=== PATIENT | female | born 1990 ===

== ENCOUNTER 2018-02-22 14:45 | Inpatient (IN) | payer OTHER ==
[~2018-02-22] VITALS: Ht 180.3 cm; Wt 143.8 kg
[2018-03-06] MEDS ORDERED: PRENATAL 19 TA1 EAC1 PO (08:47)
[2018-03-06] MEDS ORDERED: FOLIC ACID0.4 MG PO (08:48)
== END 2018-03-09 15:05 | disposition home or self-care, planned readmission (81) | DRG 775 ==
LOC: OB/GYN 03-06 05:59 → LDR 03-06 05:59 → OB/GYN 03-07 21:38 → LDR 03-12 14:45
PROC: 10E0XZZ Delivery of Products of Conception, External Approach (ICD-10-PCS; principal; 2018-03-07)
PROC: 0HQ9XZZ Repair Perineum Skin, External Approach (ICD-10-PCS; 2018-03-07)
PROC: 10907ZC Drainage of Amniotic Fluid, Therapeutic from Products of Conception, Via Natural or Artificial Opening (ICD-10-PCS; 2018-03-07)
PROC: 3E0P7VZ Introduction of Hormone into Female Reproductive, Via Natural or Artificial Opening (ICD-10-PCS; 2018-03-07)
PROC: 3E033VJ Introduction of Other Hormone into Peripheral Vein, Percutaneous Approach (ICD-10-PCS; 2018-03-07)
PROC: 4A033R1 Measurement of Arterial Saturation, Peripheral, Percutaneous Approach (ICD-10-PCS; 2018-03-07)
PROC: 4A1HXCZ Monitoring of Products of Conception, Cardiac Rate, External Approach (ICD-10-PCS; 2018-03-07)
DX: O70.0 First degree perineal laceration during delivery (principal); Z3A.39 39 weeks gestation of pregnancy; Z37.0 Single live birth